=== PATIENT | male | born 1970 | race Caucasian/White ===

== ENCOUNTER → 2016-07-22 | Outpatient (CLI) | payer OTHER ==
--- NOTE | 2016-07-22 15:35 | US ---
Ultrasound Venous Duplex/Doppler left Leg History: Pain and swelling. Findings: Ultrasound venous duplex and Doppler imaging of the common femoral vein, femoral vein, pop liteal vein, calf veins, greater saphenous vein origin, and contralateral common femoral vein demonst rates normal compressibility, color flow, and Doppler flow without deep venous thrombosis. Impression: No deep venous thrombosis left leg. Results called to Dr. Birdie Dorman at 3:30 PM
== END ==
LOC: FIMAGING 13:55
PROVIDERS: ATTEND Internal Medicine Geriatric Medicine
DX: R22.42 Localized swelling, mass and lump, left lower limb (principal)

== ENCOUNTER 2018-08-20 14:57 | Emergency (ER) | payer OTHER ==
[2018-08-20] MEDS ORDERED: fentaNYL 100 MCG/2 ML INJ IVP ONE (15:15)
[2018-08-20] MEDS ORDERED: ONDANSETRON 4 MG/2 ML VIAL IVP ONE (15:15)
[2018-08-20] MEDS ORDERED: LORazepam 2 MG/ML INJ IVP ONE (15:24)
--- NOTE | 2018-08-20 15:26 | EDPHY ---
H & P Stated Complaint: FALL FLAT ON BACK 1 HR AGO, ADVIL/TYL,SEVERE T-SPINE PAIN, WALK ON SCENE - Personal History Current Tetanus/Diphtheria Vaccine: Yes - Medical/Surgical History Hx Asthma: No Hx Chronic Respiratory Disease: No Hx Diabetes: No Hx Cardiac Disease: No Hx Renal Disease: No Hx Cirrhosis: No Hx Alcoholism: No Hx HIV/AIDS: No Hx Splenectomy or Spleen Trauma: No Other PMH: DENIES - Social History Smoking Status: Never smoked Time Seen by Provider: 08/20/18 15:17 HPI/ROS: CHIEF COMPLAINT: Thoracic back pain post slip on ice. HISTORY OF PRESENT ILLNESS: 48-year-old male arrives via private vehicle complaining of acute thoracic midline back pain when he slipped on ice, landed on his back impacting directly upper thoracic region.. Occurred shortly prior to arrival. No head injury. No midline C-spine pain or injury. No peripheral paresthesia, weakness, numbness. No lumbar spine pain. No pelvic pain or straddle injury. No buttock pain. REVIEW OF SYSTEMS: 10 systems reviewed and negative with the exception of the elements mentioned in the history of present illness PAST MEDICAL/SURGICAL HISTORY: Prior history of T5 transverse process fracture secondary to skiing incident. SOCIAL HISTORY: denies alcohol use at time of incident PHYSICAL EXAM 1) GENERAL: Well-developed, well-nourished, alert and oriented. Appears uncomfortable, hyperventilating Answering questions appropriately. 2) HEAD: Normocephalic, atraumatic 3) HEENT: Pupils equal, round, reactive to light bilaterally. Negative Horners. Nasopharynx, oropharynx, clear. No deformity or angulation of nose. No septal hematoma. No rhinorrhea. No oral trauma. Ears bilaterally with normal tympanic membranes. No hemotympanum. No fluid or blood in the external auditory canal. No raccoon eyes. No Amaya sign. Teeth are normally aligned with no gross malocclusion, TMJ bilaterally nontender, facial bones nontender including the zygomatic arch, maxilla mandible. 4) NECK: No cervical collar is on. Posterior cervical spine is nontender, no stepoff, no effusion. Full range of motion which does not elicit any midline cervical spine pain, no posterior midline tenderness, no step-off. Cervical collar is on.Cervical collar is removed while holding inline traction and patient is unable to completely differentiate between true midline pain versus just lateral of midline pain.Cervical collar is replaced at that point.and patient has no complaints of midline cervical pain, no effusion noted, trachea midline, no JVD. 5) LUNGS: Clear to auscultation bilaterally, no wheezes, no rhonchi, no retractions. No obvious signs of trauma. No chest wall pain. No flaring, no grunting. Moving symmetrically. No crepitus. 6) HEART: Regular rate and rhythm, 7) ABDOMEN: No guarding, no rebound, no focal tenderness, no peritoneal signs, no signs of trauma, no ecchymosis 8) MUSCULOSKELETAL: Carpal pedal spasms noted. Moving all extremities, no focal areas of tenderness, no obvious trauma. 9) BACK: Tender to palpation approximately T3 through T5 midline. No visible deformity. No step-off. No effusion. Otherwise No midline vertebral tenderness, no fluctuance, no step-off, no obvious trauma, no visual or palpable abnormality. Specifically, no midline cervical pain, no midline lumbar pain. 10) SKIN: No laceration. No abrasion 11) NEURO: Awake, alert, and oriented to person, place and time. Answers questions appropriately. There were no obvious focal neurologic abnormalities. No cerebellar dysfunction. No neurologic dysfunction at the thoracic dermatomes and myotomes. Cranial nerves 2 through to 12 intact. Normal steady gait. Upper and lower extremities bilaterally with strength 5 / 5, reflexes 2+. DIFFERENTIAL DIAGNOSIS: In no particular order including but not limited to fracture, sprain, strain, dislocation (Jose E Balbuena Lora) Constitutional: Initial Vital Signs Heart Rate 66 08/20/18 15:03 Respiratory Rate 28 H 08/20/18 15:03 Blood Pressure 146/105 H 08/20/18 15:03 O2 Sat (%) 100 08/20/18 15:03 O2 Delivery Mode Room Air Allergies/Adverse Reactions: No Known Allergies Allergy (Unverified 08/20/18 15:03) Home Medications: Medication Instructions Recorded Hydrocodone/APAP 5/325 [[place] 1 tab PO Q6 PRN #15 tab 08/20/18 5/325 (RX)] Ondansetron Odt [Zofran Odt] 4 mg PO Q4PRN PRN #15 tab 08/20/18 Medical Decision Making - Diagnostics Imaging Results: Images reviewed myself (Jose E Balbuena) ED Course/Re-evaluation: The patient was evaluated and managed by the physician business assistant. I have reviewed this chart and I agree with the findings and plan of care as documented , as indicated by my signature. I am the secondary supervising physician. I reviewed the patient's imaging studies. (Yaima Daniels) 3:20 p.m.: Evaluation of the patient, he is hyperventilating, carpal pedal spasms noted, significant amount of discomfort. He will be given Ativan, fentanyl, x-rays of the thoracic spine will be obtained. He has isolated pain to the thoracic spine. 4:30 p.m.: Re-evaluation. Significantly more calm and pain controlled. 4:43 p.m.: Reviewed the imaging results with staff radiologist, also reviewed the images myself, showing T4 fracture. Discussed with patient and his . Consultation with Dr. [facility] Neurosurgery, discussed the imaging results. 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 4:50 p.m.: Patient was re-evaluated with serial exams. Discussed his imaging results. [facility] [employer] has been consulted and will come to the ER to fit patient for SILVER SPRAY WORKER brace. Plan will be discharge with analgesia follow-up with Dr. Russ Hall. Lengthy discussion with the patient regarding his discharge instructions. 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 He and his feel comfortable being discharged. Given prescription for analgesia and antiemetic should he develop nausea. He remains no neurologic deficits or complaints. Patient also seen exam by Dr. Yaima Daniels, secondary supervising physician. (Jose E Balbuena) - Data Points Medications Given: Discontinued Medications Fentanyl (Sublimaze) 100 mcg IVP EDNOW ONE Stop: 08/20/18 15:16 Last Admin: 08/20/18 15:17 Dose: 100 mcg Lorazepam (Ativan Injection) 1 mg IVP EDNOW ONE Stop: 08/20/18 15:25 Last Admin: 08/20/18 15:29 Dose: 1 mg Ondansetron HCl (Zofran) 4 mg IVP EDNOW ONE Stop: 08/20/18 15:16 Last Admin: 08/20/18 15:17 Dose: 4 mg Oxycodone/Acetaminophen (Percocet 5/325) 1 tab PO EDNOW ONE Stop: 08/20/18 17:03 Last Admin: 08/20/18 17:51 Dose: 1 tab Departure - Departure Disposition: Home, Routine, Self-Care Clinical Impression: Fall from slipping on ice Qualifiers: Encounter type: initial encounter Qualified Code(s): W00.9XXA - Unspecified fall due to ice and snow, initial encounter Thoracic vertebral fracture Qualifiers: Encounter type: initial encounter Thoracic vertebra fracture level: T4 Fracture type: closed Fracture morphology: wedge compression Qualified Code(s): S22.040A - Wedge compression fracture of fourth thoracic vertebra, initial encounter for closed fracture Condition: Good Instructions: Vertebral Compression Fracture (ED), Clamshell Brace (ED) Additional Instructions: Return to the ER if you develop numbness, tingling in your chest, if you develop new or worsening pain or any other symptoms that concern you. Referrals: Wesley Gonzalez MD [Medical Doctor] - 5-7 days, call for appt. Prescriptions: Hydrocodone/APAP 5/325 [[place] 5/325 (RX)] 1 tab PO Q6 PRN #15 tab PRN Reason: Pain, Severe Ondansetron Odt [Zofran Odt] 4 mg PO Q4PRN PRN #15 tab PRN Reason: Nausea
[2018-08-20] MEDS ORDERED: OXYCODONE/APAP 5/325 TAB PO ONE (17:02)
[2018-08-20 18:06] VITALS: BP 117/70
== END 2018-08-20 18:04 | disposition home or self-care (01) ==
DX: S22.040A Wedge compression fracture of fourth thoracic vertebra, initial encounter for closed fracture (principal); W00.0XXA Fall on same level due to ice and snow, initial encounter
CPT/HCPCS: 96374; J2060; J2405; J3010